=== PATIENT | female | born 1985 | race Caucasian/White ===

== ENCOUNTER 2019-06-22 06:37 | Day surgery (SDC) | payer OTHER ==
[~2019-06-22 06:37] MED LIST: Buffered Lidocaine 1% SYRIN* 1 ML/SYRINGE INTRADERM ONE; Famotidine IV* 10 MG/ML 2 ML (20 mg) IV ONE; Lactated Ringers 1000 ML Bag* 1,000 ML IV SCH
[2019-06-22] MEDS ORDERED: ceFAZolin 2 GM in NS PREMIX(*) 2 GM/100 ML BAG IVPB ONE (06:59)
[2019-06-22] MEDS ORDERED: Buffered Lidocaine 1% SYRIN* 1 ML/SYRINGE INTRADERM ONE (06:59)
[2019-06-22] MEDS ORDERED: Famotidine IV* 10 MG/ML 2 ML (20 mg) ONE (06:59)
[2019-06-22] MEDS ORDERED: Propofol* 10 MG/ML 20 ML BTL ONE (09:35)
[2019-06-22] MEDS ORDERED: HYDROmorphone INJ1* 1 MG/ML SYRINGE ONE (09:35)
[2019-06-22] MEDS ORDERED: Bupivacaine 0.25% SDV* 30 ML ONE (09:48)
[2019-06-22] MEDS ORDERED: Naloxone* 0.4 MG/ML 1 ML VIAL IV PRN (09:48)
[2019-06-22] MEDS ORDERED: fentaNYL* 50 MCG/ML 2 ML VIAL (100 MCG VIAL) IV PRN (09:53)
[2019-06-22] MEDS ORDERED: Ondansetron INJ* 2 MG/ML VIAL IV PRN (09:53)
[2019-06-22] MEDS ORDERED: Ondansetron INJ* 2 MG/ML VIAL ONE ×2 (10:21→11:18)
[2019-06-22] MEDS ORDERED: Dexamethasone IV* 4 MG/ML 1 ML (4 MG) ONE (10:21)
[2019-06-22 13:16] VITALS: BP 99/65
--- NOTE | 2019-06-22 19:47 | OP ---
DATE OF OPERATION: 06/22/19 - [facility] DATE OF : 87 SURGEON: Barrett Verdin MD HAT SIZER: JUAN MANUEL Raygoza. An assistant men's soccer coach was needed for the procedure to aid in positioning of the arm and retraction. ANESTHESIOLOGIST: Dr. Yeung. ANESTHESIA: General. 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 OPERATIVE PROCEDURE: Left ulnar nerve decompression with anterior transmuscular transposition. INDICATIONS: Ms. Vergara is 34 years old. She has very symptomatic left ulnar nerve. We had talked about treatment options, risks and benefits. She wanted to proceed with surgery. She understands there is risk associated with this. ESTIMATED BLOOD LOSS: 2 mL. COMPLICATIONS: None. FINDINGS: See above and below. DESCRIPTION OF PROCEDURE: Ms. Vergara was seen in the preoperative holding area. The correct site, side, and procedure were identified. We came back to the operating room. The arm was prepped and draped in the usual fashion and a time- out was performed. The arm was exsanguinated with the Esmarch and the tourniquet was inflated to 250 mmHg. I made a curvilinear incision centered over the cubital tunnel. Dissection was carried down. Full thickness flaps were raised off the flexor pronator fascia. The ulnar nerve was unroofed just proximal to Diaz's ligament. The release was carried out proximally and past the arcade of Pine. I then came distally and released Diaz's ligament. I released the superficial FCU fascia. I then split the 2 heads of the FCU and released the subfascial layer. Care was taken to preserve the motor branches to the FCU. Once I had done this, I noted that the nerve was already subluxated up over the medial epicondyle. It was even prior to beginning the decompression. I went ahead and placed a vessel loop around the nerve and performed a neurolysis. I raised step-cut fascial flaps in the flexor pronator fascia. The muscular septae were excised. The medial intramuscular septum was released. The leading edge of the FCU fascia was released and some of the FCU muscle humeral head was excised. I then transposed the nerve. The 2 ends of the fascial flaps were sewn end-to-end with 4-0 Ethibond suture. Hemostasis was obtained with the use of the bipolar and the Bovie. Once everything was looking good and there was absolutely no tension on the nerve and the nerve was nicely in the transposed position. We irrigated out the wound. Subcutaneous tissue was reapproximated with 3-0 Vicryl. Skin was closed with 3-0 Monocryl and Steri- Strips. A 0.25% Marcaine was infiltrated. The wound was dressed with 4x4s, ABD, sterile Webril and then a long-arm splint with lateral buttress was applied. She was taken to the recovery room in stable condition. [id number] #: [id number]
== END 2019-06-22 13:18 | disposition home or self-care (01) ==
LOC: OR 06:37
PROVIDERS: ATTEND Orthopaedic Surgery Hand Surgery
DX: G56.22 Lesion of ulnar nerve, left upper limb (principal); Z88.2 Allergy status to sulfonamides
CPT/HCPCS: 81025; J0690; J1100; J1170; J2405; J2704; J3490